=== PATIENT | female | born 1995 ===

== ENCOUNTER 2016-08-10 15:21 | Emergency (ER) | payer OTHER ==
--- NOTE | 2016-08-10 16:30 | UC ---
Respiratory Complaint HPI - HPI Summary HPI Summary: 21 yo female with <48 hour hx of cough/runny nose/sore throat/fatigue/fever/ chills/myagias and headache no n/v/d no UTI symptoms - History of Current Complaint Chief Complaint: UCGeneralIllness Stated Complaint: FEVER Time Seen by Provider: 08/10/16 16:13 Hx Obtained From: Patient Hx Last Menstrual Period: 07/16/16 Onset/Duration: Gradual Onset, Lasting Days Timing: Constant Severity Initially: Moderate Severity Currently: Moderate Pain Intensity: 6 Pain Scale Used: 0-10 Numeric Character: Cough: Nonproductive Aggravating Factors: Nothing Alleviating Factors: Nothing Associated Signs And Symptoms: Positive: Fever, Chills, Nasal Congestion - Allergies/Home Medications Allergies/Adverse Reactions: Allergies Allergy/AdvReac Type Severity Reaction Status Date / Time No Known Allergies Allergy Verified 08/10/16 15:41 Home Medications: Home Medications Acetaminophen 1,000 mg PO PRN 08/10/16 [History] Control Pill* 08/10/16 [History] [id number] [Nyquil Severe Cold/Flu 5-6.25-10-325 mg/15Ml] 1 liq PO PRN 08/10/16 [History] PMH/Surg Hx/FS Hx/Imm Hx Previously Healthy: Yes - Surgical History Surgical History: None - Family History Known Family History: Positive: Diabetes Negative: Hypertension - Social History Alcohol Use: Occasionally Substance Use Type: None Smoking Status (MU): Current Some Day Smoker Review of Systems Constitutional: Fever, Chills, Fatigue Skin: Negative Eyes: Negative ENT: Sore Throat, Nasal Discharge Respiratory: Cough Cardiovascular: Negative Gastrointestinal: Negative Genitourinary: Negative Motor: Negative Neurovascular: Negative Musculoskeletal: Myalgia Neurological: Headache, Weakness Psychological: Negative All Other Systems Reviewed And Are Negative: Yes Physical Exam Triage Information Reviewed: Yes Appearance: Well-Appearing - non toxic Vital Signs: Initial Vital Signs Temp 99 F 08/10/16 15:37 Pulse 90 08/10/16 15:37 Resp 16 08/10/16 15:37 BP 129/91 08/10/16 15:37 Pulse Ox 100 08/10/16 15:37 Vital Signs Reviewed: Yes Eyes: Positive: Conjunctiva Clear ENT: Positive: Hearing grossly normal, Pharyngeal erythema, Nasal congestion, Nasal drainage, TMs normal. Negative: Tonsillar exudate, Trismus Neck: Positive: Supple, Nontender Respiratory: Positive: Lungs clear, Normal breath sounds, No respiratory distress, No accessory muscle use Cardiovascular: Positive: RRR, No Murmur Abdomen Description: Positive: Nontender, No Organomegaly. Negative: CVA Tenderness (R), CVA Tenderness (L) Musculoskeletal: Positive: ROM Intact, No Edema Neurological: Positive: Alert Skin Exam: Normal Skin: Positive: rashes UC Diagnostic Evaluation - Laboratory O2 Sat by Pulse Oximetry: 100 - normal/not hypoxic Respiratory Course/Dx - Course Course Of Treatment: RS (-). RF(-) - Differential Dx/Diagnosis Provider Diagnoses: acute bronchitis Discharge - Discharge Plan Condition: Stable Disposition: HOME Prescriptions: Amoxicillin (*) 875 mg PO BID #20 tab Patient Education Materials: Acute Bronchitis (ED) Additional Instructions: rest fluids tylenol or advil for fever recheck for new or worsening symptoms or if not better in 4 days
== END 2016-08-10 17:00 | disposition home or self-care (01) ==
LOC: UCEAST 15:21
DX: J20.9 Acute bronchitis, unspecified (principal); Z72.0 Tobacco use
CPT/HCPCS: 87502; 87651; 99202; G0463